=== PATIENT | female | born 1960 | race Caucasian/White ===

== ENCOUNTER 2019-05-25 05:32 | Inpatient (IN) ==
--- NOTE | 2019-05-25 05:55 | PROVIDER DOCUMENTATION ---
HPI-Neurological Disorder - General Chief Complaint: Stroke-Like Symptoms Stated Complaint: POSS STROKE SYMPTOMS Time Seen by Provider: 05/25/19 05:43 Source: patient Allergies/Adverse Reactions: Patient Allergies Allergy/AdvReac Type Severity Reaction Status Date / Time Penicillins Allergy Severe ANAPHYLAXIS Verified 06/01/16 13:54 albumin human * [From Rebif] Allergy HIVES Verified 06/01/16 13:54 butorphanol tartrate * Allergy HIVES Verified 06/01/16 13:54 [From Stadol] fentanyl Allergy DIZZINESS Verified 06/01/16 13:54 glatiramer acetate * Allergy HIVES Verified 06/01/16 13:54 [From Copaxone] interferon beta-1a Allergy HIVES Verified 06/01/16 13:54 [From Rebif] lamotrigine [From Lamictal] Allergy HIVES Verified 06/01/16 13:54 moxifloxacin HCl * Allergy HIVES Verified 06/01/16 13:54 [From Avelox] nitroglycerin Allergy NAUSEA/VOMI Verified 06/01/16 13:54 TING omeprazole [From Zegerid] Allergy HIVES Verified 06/01/16 13:54 oxycodone HCl * Allergy HIVES Verified 06/01/16 13:54 [From Roxicodone] prasterone (DHEA) Allergy HIVES Verified 06/01/16 13:54 pregabalin [From Lyrica] Allergy HIVES Verified 06/01/16 13:54 prochlorperazine edisylate * Allergy HIVES Verified 06/01/16 13:54 [From Compazine] prochlorperazine maleate * Allergy HIVES Verified 06/01/16 13:54 [From Compazine] sodium bicarbonate Allergy HIVES Verified 06/01/16 13:54 [From Zegerid] Sulfa (Sulfonamide Allergy RASH Verified 06/01/16 13:54 Antibiotics) Home Medications: Home Medication List Medication Instructions Recorded Confirmed Last Taken Type Gabapentin 600 mg PO BID 01/12/14 05/25/19 03/17/14 History Insulin Detemir [Levemir Flexpen] 50 unit SQ DIRECTED 01/12/14 05/25/19 03/17/14 History Lacosamide [Vimpat] 200 mg PO HS 01/12/14 05/25/19 03/17/14 History Omeprazole 40 mg PO DAILY 01/12/14 05/25/19 03/17/14 History Ondansetron HCl [Zofran] 4 mg PO Q8H PRN PRN 01/12/14 05/25/19 Unknown History Tizanidine [Zanaflex] 4 mg PO TID 01/12/14 05/25/19 03/17/14 History Levothyroxine Sodium 125 mcg PO DAILY 02/19/14 05/25/19 03/17/14 History Metoprolol Succinate 100 mg PO QHS 02/19/14 05/25/19 03/17/14 History Hydromorphone HCl [Dilaudid] 4 mg PO Q8-12H PRN PRN 03/18/14 05/25/19 03/18/14 16:25 History 4mg Promethazine [Phenergan] 50 mg PO Q6H PRN PRN 03/18/14 05/25/19 Unknown History Cyclobenzaprine [Flexeril] 10 mg PO TID #20 tablet 06/01/16 05/25/19 Unknown Rx Aripiprazole 5 mg PO DAILY 05/25/19 05/25/19 Unknown History Aspirin [Adult Aspirin] 81 mg PO DAILY 05/25/19 05/25/19 Unknown History Baclofen 10 mg PO Q8H PRN PRN 05/25/19 05/25/19 Unknown History Clopidogrel Bisulfate [Plavix] 75 mg PO DAILY 05/25/19 05/25/19 Unknown History Dantrolene Sodium 25 mg PO TID 05/25/19 05/25/19 Unknown History Diclofenac Potassium [Cambia] 50 mg PO DIRECTED 05/25/19 05/25/19 Unknown History Dulaglutide [Trulicity] 0.5 ml SQ DIRECTED 05/25/19 05/25/19 Unknown History Insulin Aspart [Novolog Flexpen] See Protocol SQ DIRECTED 05/25/19 05/25/19 Unknown History Pravastatin Sodium 20 mg PO DAILY 05/25/19 05/25/19 Unknown History Quetiapine [Seroquel] 200 mg PO QHS 05/25/19 05/25/19 Unknown History Venlafaxine E.r. [Effexor Xr] 75 mg PO DAILY 05/25/19 05/25/19 Unknown History - History of Present Illness-Neuro Nature of Presenting Problem: patient is a 58 year old white female with history of diabetes, TIAs ,multiple sclerosis,and CVA last Saturday when she received TPA for left sided weakness,sent to [facility], who presents with worsening left sided weakness since 429. Patient arrives with GCS of 15 and NIH stroke score of 4. Onset/Duration: reports: abrupt, 1-3 hours ago Timing: reports: still present Cognitive Baseline: alert, oriented x3 Review of Systems - Adult - REVIEW OF SYSTEMS - ADULT Constitutional: denies: chills, fever Eyes: denies: blurred vision Ears, Nose, Mouth & Throat: reports: no symptoms reported Cardiovascular: denies: chest pain Respiratory: denies: shortness of breath Gastrointestinal: reports: no symptoms reported Genitourinary: reports: no symptoms reported Musculoskeletal: reports: see HPI Integumentary: reports: no symptoms reported Neurological: reports: see HPI Psychiatric: reports: anxiety Endocrine: reports: no symptoms reported Hematologic/Lymphatic: reports: no symptoms reported Allergic/Immunologic: reports: no symptoms reported All Other Systems: Reviewed and Negative Past History - Adult - PAST MEDICAL HISTORY-ADULT Review of Records: reports: Old Records Reviewed, Nursing Assessment Review, Medications Reviewed, Social history reviewed & non-contributory. Major Childhood Illnesses: reports: denies history Cardiovascular: reports: cardiac disease Respiratory: reports: COPD Gastrointestinal: reports: denies history Obstetrical/Gynecological: reports: denies history Genitourinary: reports: denies history Musculoskeletal: reports: denies history Neurological: reports: CVA, headaches/migraines, Multiple Sclerosis Psychiatric: reports: psychiatric problems Endocrine/Immune: reports: Diabetes, thyroid disorder Other Conditions: reports: denies history - PRIOR SURGERIES/PROCEDURES Surgical/Procedure History: reports: appendectomy, cholecystectomy, hysterectomy , other - PRIOR HOSPITALIZATIONS Prior Hospitalizations: reports: none - IMMUNIZATION STATUS Childhood Immunizations: See Nurse Assessment Flu Vaccine: See Nurse Assessment - FAMILY HISTORY Family History: reviewed, not pertinent Physical Exam- Neurological - Physical Exam-Neuro General Appearance: alert, no apparent distress, obese, other (subtle left sided facial and extremity weakness) Eye Exam: bilateral eye: normal inspection, PERRL, EOMI HENMT: moist mucous membranes, normal ENT inspection Neck: non-tender, full range of motion, supple Respiratory: chest non-tender, lungs clear Cardiovascular: regular rate, rhythm Abdominal Exam: normal bowel sounds, non tender, soft Lymphatic: no adenopathy Peripheral Pulses: radial (R): 2+, radial (L): 2+ Extremity: non-tender, other (subtle left sided weakness) Motor/Sensory: no sensory deficit Neurologic: other (mild left sided weakness) Integumentary: normal turgor Psych/Mental Status: oriented x 3, anxious - Glascow Coma Scale Best Eye Response: (4) open spontaneously Best Verbal Response: (5) oriented Best Motor Response: (6) obeys commands Total Glascow Score: 15 Progress - PLAN OF CARE/RESULTS Progress/Plan/Lab Results: Vital Signs - 8 hr 05/25/19 05:35 05/25/19 07:26 05/25/19 07:36 Temperature 98.1 F Pulse Rate 87 86 79 Respiratory Rate 18 18 18 Blood Pressure 163/92 149/79 O2 Sat by Pulse Oximetry 97 96 95 05/25/19 09:44 Temperature Pulse Rate 74 Respiratory Rate 12 Blood Pressure 107/66 O2 Sat by Pulse Oximetry 97 Laboratory Results - last 24 hr 05/25/19 05/25/19 05/25/19 05:43 05:43 05:43 WBC 4.52 L RBC 5.29 Hgb 12.3 Hct 39.2 MCV 74.1 L MCH 23.3 L MCHC 31.4 L RDW Std Deviation 14.2 Plt Count 143 MPV 8.8 Immature Gran % (Auto) 0.4 Neut % (Auto) 51.4 Lymph % (Auto) 41.4 [place] % (Auto) 4.2 Eos % (Auto) 2.2 Baso % (Auto) 0.4 Immature Gran # (Auto) 0.02 Neut # (Auto) 2.32 Lymph # (Auto) 1.87 [place] # (Auto) 0.19 Eos # (Auto) 0.10 Baso # (Auto) 0.02 PT INR PTT (Actin FS) Sodium 141 Potassium 4.3 Chloride 104 Carbon Dioxide 28 Anion Gap 9 BUN 17 Creatinine 0.7 Estimated GFR/1.73 m2 > 60 BUN/Creatinine Ratio 24 Glucose 223 H POC Glucose Calculated Osmolality 290 Calcium 8.4 L Total Bilirubin 0.20 AST 29 ALT 32 Alkaline Phosphatase 131 H Troponin T < 0.010 Total Protein 6.1 L Albumin 4.2 Globulin 2.0 Albumin/Globulin Ratio 2.0 Urine Opiates Screen Ur Oxycodone Screen Urine Methadone Screen U Propoxyphene Qual Ur Barbituates Screen Ur Tricyclics Screen Ur Phencyclidine Scrn Ur Amphetamines Screen U Methamphetamines Scrn U Benzodiazepines Scrn Urine Cocaine Screen U Cannabinoids Screen 05/25/19 05/25/19 05/25/19 05:43 05:45 07:45 WBC RBC Hgb Hct MCV MCH MCHC RDW Std Deviation Plt Count MPV Immature Gran % (Auto) Neut % (Auto) Lymph % (Auto) [place] % (Auto) Eos % (Auto) Baso % (Auto) Immature Gran # (Auto) Neut # (Auto) Lymph # (Auto) [place] # (Auto) Eos # (Auto) Baso # (Auto) PT 13.4 INR 0.97 PTT (Actin FS) 29.7 Sodium Potassium Chloride Carbon Dioxide Anion Gap BUN Creatinine Estimated GFR/1.73 m2 BUN/Creatinine Ratio Glucose POC Glucose 184 H D Calculated Osmolality Calcium Total Bilirubin AST ALT Alkaline Phosphatase Troponin T Total Protein Albumin Globulin Albumin/Globulin Ratio Urine Opiates Screen PRESUMPTIVE POSITIVE A Ur Oxycodone Screen NONE DETECTED Urine Methadone Screen NONE DETECTED U Propoxyphene Qual NONE DETECTED Ur Barbituates Screen NONE DETECTED Ur Tricyclics Screen PRESUMPTIVE POSITIVE A Ur Phencyclidine Scrn NONE DETECTED Ur Amphetamines Screen NONE DETECTED U Methamphetamines Scrn NONE DETECTED U Benzodiazepines Scrn NONE DETECTED Urine Cocaine Screen NONE DETECTED U Cannabinoids Screen NONE DETECTED Orders Category Date Time Status Cardiac Monitoring DIRECTED Care 05/25/19 05:43 Active Finger Stick Blood Sugar (ED) DIRECTED Care 05/25/19 05:43 Active Misc. NRSG Communication Order DIRECTED Care 05/25/19 06:07 Active Oxygen Therapy- ED Nursing DIRECTED Care 05/25/19 05:43 Active Resuscitation Status Routine Care 05/25/19 10:26 Ordered Saline Loc NOW Care 05/25/19 05:43 Active CHEST-PORTABLE [RAD] Stat Exams 05/25/19 05:[address] HEAD W/O CONTRAST [CT] Stat Exams 05/25/19 05:39 Completed CBC WITH ELECTRONIC DIFF [HEME] Stat Lab 05/25/19 05:43 Completed COMPREHENSIVE METABOLIC PANEL [CHEM] Stat Lab 05/25/19 05:43 Completed PROTIME WITH INR [COAG] Stat Lab 05/25/19 05:43 Completed PTT [COAG] Stat Lab 05/25/19 05:43 Completed TROPONIN T Stat Lab 05/25/19 05:43 [address] DRUG SCREEN [address] Stat Lab 05/25/19 07:45 Completed EKG [EKG] Stat Ther 05/25/19 05:43 Draft Transfer/Admit Order [TRANSFER] Routine Transfer 05/25/19 10:25 Ordered Result Diagrams: 05/25/19 05:43 05/25/19 05:43 - REASSESSMENT Reassessment #1 Time Reassessed: 07:34 Status: unchanged (chart and CT head reviewed, pt examined , she is no better, still mild weak left lower face, mild speech , mild weak left arm dn leg. not a tPA candidate.) Reassessment #2 Time Reassessed: 10:22 Status: unchanged (A FEW WHONE CALL AND DISCUSSION TO WTHER PT BEST ADMITTED [facility] OR [facility]. JUST TALKED TO DR HA TWICE: PT TO BE ADMITTED TO [facility] NO BEDS AT [facility]. I ALSO TALKED TO DR GAMBOA (WHO IS NOT SCAN COORDINATOR) WHO SAYS [place] PT IN CONSULTATION IF SHE IS STILL ADMITTED HERE TOMORROW.) Reassessment #3 Time Reassessed: 10:35 Status: unchanged (PT AWAKENED FROM A DEEP SLEEP. DENIES PAIN (HAS NOT RECIEVED ANALGESICS HERE). CONCURS WITH FULL CODE STATUS. ORDERING MRI PT MORE SLEEPY THAN EARLIER. NO CHANGE IN PARTIAL WEAKNESS LEFT EXTREMITIES.) - EKG 1 Time of EKG reading by physician:: 05:38 EKG Read and Signed by:: Demarco Bedoya Rate: 86 Rhythm: NSR [place]: normal QRS: LVH [place] Interval: normal ST Wave: non-specific ST changes - CONSULTS/PCP/HOSPITALIST Notification #1 *Consult/PCP/Hospitalist*: DR NAZARIO,neurology at [facility] Time Discussed: 07:35 Consult Disposition: other (Pt not a canditate for tPA today as possible ischemic stroke just 1 wk ago. [facility] neuro full, try for transfer to [facility].) #2 Consult: DR CINTRON, [facility] NEUROLOGY Time Discussed: 08:15 Consult Disposition: other (DR CINTRON PULLED UP CAHRT AND MRI FROM 4 DAYS AGO AT [facility]: NO STROKE FOUND ON MRI, LWFT BODY WEAKNESS DEEMED 'NON--0RGANIC'. DR CINTRON DOES NOT ACDEPT PT TO [facility] NO FURTHER W/O RO MRI WOULD BE OFFERED. SAYS PT NEEDS RE-ASSURANCE AND REHAB WHICH CAN BE DONE HERE.) #3 Consult: DR CONTRERAS Time Discussed: 08:32 Consult Disposition: Admit (MAY NEED ADMISSON TO [facility] FOR NEUROLOGY SERVEICES, ACCEPTS ADMISSION.) - CHANGE OF SHIFT REPORT (ED Provider) 1 Report Given and Care Transferred to:: signed off to Dr. Edgar Ospina Time of Transfer: 07:00 Items Pending: Physician Consult/Arrival (awaiting teleneuro) Departure - Departure Date of Disposition Decision: 05/25/19 Time of Disposition Decision: 08:33 DIAGNOSIS: Left-sided weakness, Multiple sclerosis, Headache Disposition: ADMITTED INPATIENT 09 Certified Medical Emergency: Emergent Condition: Stable Referrals and Follow-Ups: Ángel Hylton [Primary Care Provider] - Discharge Education: Migraine Headache, [id number] - Critical Care Note This patient required my direct & personal management of CC.: Yes Total Time (mins): 45 (MULTIPLE PHONE CALLS TO SPECIALIST) Critical Care Statement: This patient required my direct personal management to treat or rule out processes, the absence of which, could potentiallly result in sudden, clinically significant life or limb threatening deterioration. Attestation - Physician/ AMANDA Attestation Patient care was provided by Advanced Practice Provider:: No The physician spent face to face time with patient:: Yes Advanced Practice Provider documentation review:: Supervising physician onsite and consulted in the evaluation and care of this patient. The physician did have a face to face encounter with the patient. - NIH Stroke Scale Level of Consciousness: 0-Alert LOC Questions (ask month and age): 0-Answers Both Correctly LOC Commands (ask to open & close eyes;make a fist, let go): 0-Obeys Both Correctly Best Gaze (horizontal eye movement): 0-Normal Visual (use finger movement, counting or visual threat): 0-No Visual Loss Facial Palsy (show teeth or raise eyebrows & close eyes tght: 1-Minor Paralysis Motor Function-left arm: 1-Drift Motor Function-right arm: 0-Normal Motor Function-left le-Drift Limb Ataxia(smygrc-rbja-knrnno, or heel to whelan): 1-Present in one limb Sensory(pin prick to face,arms,trunk,legs-compare side/side): 0-No Ataxia Best Language(name item/read sentence.Ex-Down to Earth): 0-No Aphasia Dysarthria(Pt read words or say words Ex.Mama,Tip-Top,Thanks: 0-Normal Articulation NIH Total Score: 4 Modified Carney Score Criteria: 2-slight disability Stroke tPA Guidelines - Consultation Reason not a candidate:: GIVEN TPA FOR POSSIBLE STROKE JUST 6 DAYS AGO.
[2019-05-25 06:01] LABS: BASO# 0.02 X1000 (0.0-0.2); BASO% 0.4 % (0.0-0.8); EOS% 2.2 % (0.0-10.0); HEMATOCRIT 39.2 % (37.0-47.0); HEMOGLOBIN 12.3 g/dL (12.0-16.0); IMM GRAN# 0.02 X1000 (0.0-0.04); IMM GRAN% 0.4 % (0.0-0.5); LYMPH# 1.87 X1000 (1.2-3.4); LYMPH% 41.4 % (20.5-51.1); MCH 23.3 PG (27-31); MCHC 31.4 g/dL (33-37); MCV 74.1 FL (81-99); MONO# 0.19 X1000 (0.11-0.59); MONO% 4.2 % (1.7-9.3); MPV 8.8 FL (7.4-10.4); NEUT# 2.32 X1000 (1.4-6.5); NEUT% 51.4 % (42.2-75.2); PLT 143 X1000 (130-400); RBC 5.29 XMIL (4.2-5.4); RDW 14.2 % (11.5-14.5); WBC 4.52 X1000 (4.8-10.8)
[2019-05-25 06:22] LABS: INR 0.97; PROTIME 13.4 Seconds (11.0-16.0)
[2019-05-25 06:24] LABS: PTT 29.7 Seconds (22.3-41.8)
[2019-05-25 06:37] LABS: AGAP 9; BUN 17 mg/dL (8-22); CHLORIDE 104 mmol/L (98-107); GLUCOSE 223 mg/dL (70-104); POTASSIUM 4.3 mmol/L (3.5-5.1); SODIUM 141 mmol/L (136-145); TCO2 28 mmol/L (25-35)
[2019-05-25 06:38] LABS: ALBUMIN 4.2 g/dL (3.5-5.0); ALKALINE PHOSPHATASE 131 U/L (32-104); CALCIUM 8.4 mg/dL (8.8-10.2); COSMO 290; CREATININE 0.7 mg/dL (0.5-0.9); ESTIMATED GFR > 60; GOT 29 U/L (10-30); GPT 32 U/L (10-36); TOTAL PROTEIN 6.1 g/dL (6.3-8.3)
--- NOTE | 2019-05-25 07:47 | Diag Imaging Result Doc PS360 ---
EXAM: CHEST-PORTABLE INDICATION: cva TECHNIQUE: One view COMPARISON: 05/19/2019 FINDINGS: The left chest port is in stable position. There is better inspiration as compared to the previous study. There has been improvement of the atelectasis at the lung bases. No new consolidation is identified. The cardiac silhouette is stable. IMPRESSION: Interval improvement of atelectasis and better inspiration. Electronically signed by Santos Quiros 05/25/2019 7:45 AM
[2019-05-25 08:30] LABS: UR AMPHETAMINES QUAL NONE DETECTED (NONE DETECT); UR BARBITUATES QUAL NONE DETECTED (NONE DETECT); UR BENZODIAZEPIN QUAL NONE DETECTED (NONE DETECT); UR CANNABINOIDS QUAL NONE DETECTED (NONE DETECT); UR COCAINE QUAL NONE DETECTED (NONE DETECT); UR METHADONE QUAL NONE DETECTED (NONE DETECT); UR METHAMPHETAMINE QUAL NONE DETECTED (NONE DETECT); UR OPIATES QUAL PRESUMPTIVE POSITIVE (NONE DETECT); UR OXYCODONE QUAL NONE DETECTED (NONE DETECT); UR PCP QUAL NONE DETECTED (NONE DETECT); UR PROPOXYPHENE QUAL NONE DETECTED (NONE DETECT); UR TCA QUAL PRESUMPTIVE POSITIVE (NONE DETECT)
--- NOTE | 2019-05-25 08:40 | EKG Report ---
Test Performed on : 05/25/2019 05:37:30 AM Test Reason : cva Blood Pressure : / mmHG Vent. Rate : 086 BPM Atrial Rate : 086 BPM P-R Int : 166 ms QRS Dur : 090 ms QT Int : 372 ms P-R-T Axes : 021 -12 030 degrees QTc Int : 445 ms Normal sinus rhythm. Moderate voltage criteria for LVH, may be normal variant Borderline ECG When compared with ECG of 19-MAY-2019 13:59, (Unconfirmed) No significant change was found Unconfirmed Result
--- NOTE | 2019-05-25 10:33 | Diag Imaging Result Doc PS360 ---
EXAM: CT HEAD W/O CONTRAST INDICATION: poss stroke TECHNIQUE: This exam was performed using automated exposure control, adjustment of mA or kV according to patient size, and/or use of iterative reconstruction technique. COMPARISON: 05/19/2019 FINDINGS: There is no definite acute infarct given the limited sensitivity of CT versus MRI. There is no discrete intracranial mass, mass effect, or intracranial hemorrhage. The surrounding soft tissues and bony structures are essentially unremarkable. IMPRESSION: No evidence of acute intracranial pathology. Electronically signed by Santos Quiros 05/25/2019 10:31 AM
[2019-05-25] MEDS ORDERED: TORADOL IV PRN (11:28)
[2019-05-25] MEDS ORDERED: NS 1,000 ML IV ONE (11:28)
[2019-05-25] MEDS: ASPIRIN PO SCH (17:13)
[2019-05-25] MEDS: TYLENOL PO PRN ×2 (17:13→23:22)
--- NOTE | 2019-05-25 18:33 | Diag Imaging Result Doc PS360 ---
EXAM: CT ANGIOGRAM HEAD/NECK INDICATION: stroke TECHNIQUE: This exam was performed using automated exposure control, adjustment of mA or kV according to patient size, and/or use of iterative reconstruction technique. Thin section axial images and 3-D MIPS were obtained. COMPARISON: No prior CTA head is available for comparison. FINDINGS: HEAD: The left vertebral artery is mildly dominant. The right vertebral artery terminates in PICA, a normal variant. The left PICA is not well visualized. The basilar artery is unremarkable. There is trace atherosclerotic calcification at the carotid siphons. There is no evidence of significant ICA stenosis. The arteries comprising the [place] of [place] including the anterior, middle, and posterior cerebral arteries exhibit no flow-limiting stenosis, vascular malformation, or aneurysm. NECK: There is only trace atherosclerotic calcification at the proximal ICA on the right. There is no evidence of flow-limiting stenosis, vascular malformation, aneurysm, or dissection involving the right or the left cervical carotid systems or the right and left vertebral arteries. IMPRESSION: 1.Right vertebral artery terminates in PICA, a normal variant. The left PICA, cannot be identified. However, absence of one of the PICAs is also a fairly common variant. 2.Otherwise, no evidence of flow-limiting stenosis involving the arteries of the head or the neck. Electronically signed by Santos Quiros 05/25/2019 6:31 PM
--- NOTE | 2019-05-25 18:41 | HISTORY AND PHYSICAL ---
CHIEF COMPLAINT: Stroke-like symptoms. HISTORY OF PRESENT ILLNESS: This is a 58-year-old female with multiple medical conditions including TIA, multiple sclerosis, previous CVA, and hypertension who presented to the emergency department last night complaining of blurry vision, slurred speech, and left-sided weakness. She reported that last Saturday she was okay in the morning, but by the afternoon she noticed. Some weakness of the left leg as well as blurred vision, dizziness and slurred speech. So a relative called the ambulance. She was about to be sent to another hospital, but en route she was found to have a blood pressure 220/104. So EMS decided to bring her to the closest hospital and in this case was [facility] Here, she was evaluated, and apparently they called [facility]. They were okay to start tPA on her, and she was sent over there. She was evaluated by neurologist, and apparently the MRI of the brain did not show any stroke. So she was dismissed the next today. This case was . Yesterday afternoon, she started noticing basically the same symptoms, so that is why she decided to come to the emergency department here in [place]. Upon my examination now, she reported that all her symptoms are gone except mild weakness in the left lower extremity. Dr. Edgar Ospina evaluated this patient, and he called B this morning. The neurologist said that they are not going to take this patient, because she did not have any stroke and they would not repeat an MRI considering that she had one recently a few days ago. Also, they tried to send this patient to [place], but they refused to take care. [facility] has been called, but they recommend for this patient to stay over here. The patient does not need to have any tPA or any other urgent measures. She is going to be admitted to the hospital over here. We will consult neurology, and we will go from there. PAST MEDICAL HISTORY: 1. Multiple sclerosis. She sees Dr. Brannon in [place]. 2. COPD as a secondary smoker. She never smoked. 3. History of TIA. Because of 2 TIAs, she was evaluated at [facility]. She was found to have a PFO that was closed in November 2018 at [facility]. 4. Hypertension. 5. Hypothyroidism. 6. Neuropathy. 7. Diabetes mellitus type 2. 8. Dysautonomia. 9. Migraines. PAST SURGICAL HISTORY: 1. Hysterectomy. 2. Bladder surgery. 3. Appendectomy. 4. Cholecystectomy. 5. Knee surgery. ALLERGIES: Penicillin, albumin human, butorphanol, and fentanyl. SOCIAL HISTORY: She Is a never smoker. Does not drink any alcohol or using illicit drugs. FAMILY HISTORY: Father of heart disease. She does not remember exactly what it was. REVIEW OF SYSTEMS: Eleven systems were reviewed and all symptoms are related to H and P. PHYSICAL EXAMINATION: VITAL SIGNS: Temperature 98.1 degrees, heart rate 71, respiratory rate 18, blood pressure 138/64, O2 saturations 100% on room air. GENERAL: This is a 58-year-old female lying in bed in no acute distress. HEENT: Head is normocephalic, atraumatic. Mucous membranes dry. Pupils equal, round, and reactive to light and accommodation. NECK: No JVD noted. No carotid bruits. No lymphadenopathy. No thyromegaly. CARDIOVASCULAR: S1, S2 heard. No murmurs, gallops, or rubs. Regular rate and rhythm. RESPIRATORY: Clear bilaterally to auscultation. No work of breathing or using accessory muscles. ABDOMEN: Soft, nontender to palpation. Bowel sounds present. No organomegaly. EXTREMITIES: No clubbing, cyanosis, or edema. Peripheral pulses present in both legs. NEUROLOGIC: Cranial 1st to 12 grossly normal. There is a left lower extremity 3/5 motor strength. On both upper extremities there is 4/5 motor strength. Gait not evaluated. LABORATORY DATA: CBC and BMP are okay. Blood sugar is 223. UDS positive for tricyclics and opiates. ASSESSMENT AND PLAN: 1. Suspected stroke versus multiple sclerosis flare-up. At this point, I am thinking more than a possible MS flare-up. In that regard we are going to start this patient on Solu-Medrol 60 mg IV q. 8 hours. We will also use omeprazole. Of course, I would like to repeat an MRI of the brain and also CTA of the head and neck to rule out any new stroke. We will repeat the echocardiogram to see if the PFO is completely closed. 2. Hypertension. Blood pressure has been, as we mentioned before, high at admission, but now after we resumed her medications it is 138/64, last reading. We will continue to monitor. 3. Diabetes mellitus type 2. We are going to check hemoglobin A1c. We are going to start this patient on Humalog high doses, because with the Solu-Medrol her blood sugar will be really high. She has been started on Trulicity, and we will continue to monitor. 4. Hypothyroidism. We will continue with home doses of levothyroxine. cc: George Her MD
[2019-05-25] MEDS: SOLU-MEDROL IV SCH (18:45)
[2019-05-25] MEDS: ULTRAM PO PRN (18:46)
[2019-05-25] MEDS ORDERED: PNEUMOVAX 23 IM ONE (19:15)
[2019-05-25] MEDS: LEVEMIR INSULIN *HA SUBQ SCH (21:20)
[2019-05-25] MEDS: ZOFRAN IV PRN (21:20)
[2019-05-25] MEDS: HUMALOG (PARKWAY) SUBQ SCH (21:24)
[2019-05-26] MEDS: SOLU-MEDROL IV SCH ×3 (02:31→17:06)
[2019-05-26] MEDS: ULTRAM PO PRN ×4 (03:03→23:15)
[2019-05-26 07:19] LABS: AGAP 11; BUN 16 mg/dL (8-22); CALCIUM 8.5 mg/dL (8.8-10.2); CHLORIDE 98 mmol/L (98-107); CHOLESTEROL 151 mg/dL (0-200); COSMO 282; CREATININE 0.6 mg/dL (0.5-0.9); ESTIMATED GFR > 60; GLUCOSE 331 mg/dL (70-104); HDL 52 mg/dL (45-65); LDL 82 mg/dL; POTASSIUM 4.3 mmol/L (3.5-5.1); SODIUM 134 mmol/L (136-145); TCO2 25 mmol/L (25-35); TRIGLYCERIDES 85 mg/dL (35-135); VLDL 17 mg/dL
[2019-05-26 07:23] LABS: HEMATOCRIT 38.4 % (37.0-47.0); HEMOGLOBIN 11.9 g/dL (12.0-16.0); IMM GRAN# 0.02 X1000 (0.0-0.04); IMM GRAN% 0.4 % (0.0-0.5); LYMPH# 0.57 X1000 (1.2-3.4); LYMPH% 10.9 % (20.5-51.1); MCH 22.4 PG (27-31); MCV 72.3 FL (81-99); MONO# 0.05 X1000 (0.11-0.59); MPV 9.6 FL (7.4-10.4); NEUT# 4.57 X1000 (1.4-6.5); NEUT% 87.7 % (42.2-75.2); PLT 144 X1000 (130-400); RBC 5.31 XMIL (4.2-5.4); RDW 13.8 % (11.5-14.5); WBC 5.21 X1000 (4.8-10.8)
[2019-05-26] MEDS: ZOFRAN IV PRN ×3 (07:43→20:51)
[2019-05-26] MEDS: PRILOSEC PO SCH (07:43)
[2019-05-26] MEDS: HUMALOG (PARKWAY) SUBQ SCH ×4 (07:43→22:18)
[2019-05-26] MEDS: ASPIRIN PO SCH (09:22)
[2019-05-26] MEDS: PLAVIX PO SCH (09:22)
[2019-05-26] MEDS: LEVEMIR INSULIN *HA SUBQ SCH ×2 (09:55→20:50)
[2019-05-26 10:13] LABS: ANISOCYTOSIS 1+; LYMPHS 18 % (21-51); MICROCYTOSIS 1+; MONO 1 % (1-9); SEGS 81 % (42-75)
--- NOTE | 2019-05-26 13:44 | Diag Imaging Result Doc PS360 ---
EXAM: MRI BRAIN W/WO CONTRAST - 05/26/2019 HISTORY: WEAKNESS LEFT ARM AND LEG, LETHARGIC TECHNIQUE: MRI brain without and with contrast. Images are obtained prior to and following gadolinium administration. COMPARISON: 09/08/2018 FINDINGS: There are scattered white matter signal abnormalities similar to the prior exam. These do not have the typical. Ventricular distribution of demyelinating disease and are suggestive of mild chronic microvascular ischemic changes. The diffusion weighted images show no areas of restricted effusion (no evidence of acute infarct). There is no evidence of intracranial hemorrhage, mass effect, midline shift, or hydrocephalus. There is no abnormal enhancement identified. IMPRESSION: Mild chronic microvascular ischemic changes. No visible acute intracranial abnormality. No evidence of acute infarct. Electronically signed by Conrad Garcia 05/26/2019 1:42 PM
[2019-05-26] MEDS: TYLENOL PO PRN (14:25)
--- NOTE | 2019-05-26 16:07 | CONSULTATION ---
DATE OF CONSULTATION: 05/26/2019 HISTORY OF PRESENT ILLNESS: Ms. Goodman reports 4 episodes of left-sided weakness. Two episodes occurred in August 12 days apart, lasting 4 to 5 hours per spell. She did well for several months, and then had a spell last week and another episode yesterday. Yesterday, she was getting out of the shower and felt dizzy. She noticed weakness in the left limbs. She reports onlooker noticed facial asymmetry. She believes slurred speech was reported. There was no vision disturbance. There was no altered consciousness, altered awareness, memory gap. Symptoms resolved spontaneously after a few hours. She has a long history of headache. Headaches are mostly global, sometimes pounding and throbbing, sometimes pressure, sometimes associated with nausea. She takes hydromorphone regularly. She is missing her hydromorphone here and asked me specifically for that. Workup includes brain MRI showing nothing remarkable. There are some old ischemic changes, but nothing focal or acute and no bleeding. Blood sugars have ranged 200s to 300s. I do not see anything else remarkable in the lab work. She has been afebrile. Systolic blood pressures were initially 160s, later 100s-140s. By report, she had systolic blood pressure 200 or 220 when she presented last week. There is report that she was managed with tPA last week. There is report that she has previously diagnosed multiple sclerosis. On exam, Ms. Goodman is awake, alert, attentive. She seems appropriate. Speech is not dysarthric. Language function is intact. Memory seems good. Head and neck are unremarkable. Visual rubio are full tested grossly by confrontational finger counting. Extraocular movements are full. Facial motility is symmetric. Gag is intact. Tongue is midline. She can hear. Shoulder shrug is equal. Strength seems normal in the arms and legs, somewhat difficult to circuit court judge with certainty with her fluctuating effort testing the left limbs, particularly the left arm. With distraction and repeated testing, she shows normal power in the left limbs. Limb tone is symmetric. She did rapid alternating movements well with the hands. There is added difficulty using left arm, associated with left antecubital IV site. She reports symmetric sensation on gross testing over the limbs. Proprioception is normal at the great toe MTP joint bilaterally. I did not test her gait. She did well on [id number] testing bilaterally. IMPRESSION: No definite neurologic finding. Reported episodes associated with headache makes migraine a possibility, but I do not strongly suspect that. She has lot of headache and analgesic rebound/medication overuse, or analgesic withdrawal may be partly responsible. She appears to have sustained blood pressure elevations, and that may also account for some of her headache. The history of episodes provided to me does not suggest multiple sclerosis as the etiology. I do not see evidence of multiple sclerosis exacerbation now. I do not have any specific suggestion from Neurology standpoint. I encouraged her to take her medicines as directed, particularly to be careful with her narcotics. I told her to keep followup with her other doctors. Thanks for asking Neurology to see Ms. Goodman. cc: MD Chandler Parra III, MD MTDD
[2019-05-26] MEDS ORDERED: FLONASE NAS ONE (17:37)
[2019-05-26] MEDS: DILAUDID PO PRN (20:51)
--- NOTE | 2019-05-26 23:39 | PROGRESS NOTE ---
DATE: 05/26/2019 SUBJECTIVE: Patient notes that she is feeling a lot better, although still does not feel quite back to normal. Denies any fevers or chills. PHYSICAL EXAMINATION: Vital Signs: Reviewed. Temperature 98 degrees, pulse 75, respiratory rate 18, BP 134/83. General: Patient is awake. She is in no current respiratory distress. HEENT: Normocephalic. Neck: Supple. Cardiovascular: Regular rate. Chest: Clear. Abdomen: Soft. Extremities: Moves all extremities. ASSESSMENT: 1. Stroke-like symptoms appear to have resolved, although she does have a previous history of cerebrovascular accident. 2. Multiple sclerosis. 3. Hypertension. 4. Dysautonomia. 5. Diabetes. PLAN: We will continue to follow patient in the hospital today. If she improves, hopefully, she can discharge home tomorrow. We will attempt to get her out of bed. Further orders as needed. cc: Chandler Palacio MD
[2019-05-26] MEDS ORDERED: SEROQUEL PO SCH (23:45)
[2019-05-27] MEDS: SOLU-MEDROL IV SCH ×2 (02:27→09:03)
[2019-05-27] MEDS: HUMALOG (PARKWAY) SUBQ SCH (06:19)
[2019-05-27] MEDS: PRILOSEC PO SCH (06:19)
[2019-05-27] MEDS: DILAUDID PO PRN (06:38)
[2019-05-27 06:52] LABS: HEMOGLOBIN 11.6 g/dL (12.0-16.0); IMM GRAN# 0.02 X1000 (0.0-0.04); IMM GRAN% 0.2 % (0.0-0.5); LYMPH# 0.99 X1000 (1.2-3.4); LYMPH% 12.3 % (20.5-51.1); MCH 22.4 PG (27-31); MCHC 31.4 g/dL (33-37); MCV 71.6 FL (81-99); MONO# 0.19 X1000 (0.11-0.59); MONO% 2.4 % (1.7-9.3); MPV 9.5 FL (7.4-10.4); NEUT# 6.86 X1000 (1.4-6.5); NEUT% 85.1 % (42.2-75.2); PLT 172 X1000 (130-400); RBC 5.17 XMIL (4.2-5.4); WBC 8.06 X1000 (4.8-10.8)
[2019-05-27 06:58] LABS: AGAP 11; BUN 16 mg/dL (8-22); CALCIUM 8.8 mg/dL (8.8-10.2); CHLORIDE 105 mmol/L (98-107); COSMO 287; CREATININE 0.7 mg/dL (0.5-0.9); ESTIMATED GFR > 60; GLUCOSE 215 mg/dL (70-104); POTASSIUM 4.1 mmol/L (3.5-5.1); SODIUM 140 mmol/L (136-145); TCO2 25 mmol/L (25-35)
[2019-05-27 07:29] VITALS: BP 124/95
[2019-05-27] MEDS: ZOFRAN IV PRN (07:48)
[2019-05-27] MEDS ORDERED: FLONASE NAS SCH (09:00)
[2019-05-27] MEDS: ASPIRIN PO SCH (09:04)
[2019-05-27] MEDS: LEVEMIR INSULIN *HA SUBQ SCH (09:04)
[2019-05-27] MEDS: PLAVIX PO SCH (09:04)
--- NOTE | 2019-05-28 06:02 | DISCHARGE SUMMARY ---
ADMISSION DATE: 05/26/2019 DISCHARGE DATE: 05/27/2019 CONSULTATIONS: Dr. Green with Neurology. PERTINENT PROCEDURES: 1. Head CT with no evidence of acute intracranial pathology. 2. Head and neck CT right vertebral artery terminates in PICA and normal variant. The left PICA cannot be identified. No evidence of flow-limiting stenosis involving the arteries of the neck identified. 3. Brain MRI mild chronic microvascular ischemic changes. No visible acute intracranial abnormality. No evidence of acute infarction. DISCHARGE DIAGNOSES: 1. Stroke-like symptoms appear to have resolved. She does have a previous history of TIA with PFO closure at [facility], and has been evaluated by Dr. Green with Neurology. She has been encouraged to take her medications as directed, particularly to be careful with her narcotics. Follow up with her regular doctors. 2. Multiple sclerosis with no exacerbation. 3. Migraine headaches, which could be as a result of rebound medication and/or overuse or from hypertension now improved. 4. Hypertension. Continue medications. 5. Dysautonomia. 6. Diabetes mellitus. Continue home regimen and diabetic diet. 7. Hypothyroidism. Continue levothyroxine. HOSPITAL COURSE: Briefly, Ms. Goodman is a 58-year-old female with multiple medical issues including TIA that she was evaluated for at [facility]. She was found to have a PFO that was closed in November of 2018. Multiple sclerosis followed by Dr. Brannon in [place], previous CVA, and hypertension who presented to the ED complaining of blurry vision and slurred speech, and a left- sided weakness. She reported last Saturday she was okay in the morning, but in the afternoon she noticed weakness in the left leg and blurry vision, dizziness, and slurred speech. A relative called the ambulance. She was sent to another hospital, but en route she was found have a blood pressure of 220/104 so she was brought to the closest medical facility which was [facility]. The ED did speak with Neurology at [facility]. She was given the okay by them for tPA and was sent to [facility] where she was evaluated by a neurologist. They did an MRI of the brain that did not show any acute stroke there, and was discharged the next day. On Saturday afternoon, she started noticing the same symptoms again, and came to the ED again at [facility]. They spoke with [facility] again. They felt that all their findings were organic, and that she just needed reassurance and some rehab. They also tried [facility], however, after speaking with the on-call neurologist, they did not recommend any tPA or any other urgent measures as they did not have any rooms available so she was admitted to the [facility] for suspected stroke versus a multiple sclerosis flare up. She was initiated on Solu-Medrol, her home Plavix, and full-dose aspirin. Initial head CT as well as head neck CT did not show any acute findings. When she got an MRI on the , there were also no acute findings. She was evaluated by Dr. Green who did not find any definite neurological findings. He felt the episodes associated with headaches and possibly migraine, could deal with her analgesic medication secondary to rebound or overuse, or possibly withdrawal as well as some elevated blood pressures could account for some of her headaches. He did not feel that she had an exacerbation of her multiple sclerosis. She has been encouraged to take all her medicines as directed, and particularly be careful with her narcotics, and to follow up with her regular provider and neurologist. VITAL SIGNS: At time of discharge, temperature 98.4 degrees, heart rate 81, respirations 16, blood pressure 124/95, and O2 is 100% on room air. DISCHARGE DIET: Healthy heart. DISCHARGE MEDICATIONS: 1. Metoprolol 100 mg p.o. at bedtime. 2. Seroquel 200 mg p.o. at bedtime. 3. Aspirin 81 mg p.o. daily. 4. Baclofen 10 mg p.o. q.8 hours p.r.n. pain. 5. Aripiprazole 5 mg p.o. daily. 6. Cambia 50 mg p.o. as directed. 7. Dantrolene 25 mg p.o. t.i.d. 8. Dilaudid 4 mg p.o. q.12 hours p.r.n. pain. 9. Effexor XR 75 mg p.o. daily. 10. Gabapentin 600 mg p.o. b.i.d. 11. Levemir FlexPen 50 units subcutaneously as directed in morning and evening. 12. Levothyroxine 125 mg p.o. daily. 13. NovoLog FlexPen as per protocol. 14. Prilosec 40 mg p.o. daily. 15. Phenergan 50 mg p.o. q.6 hours p.r.n. nausea. 16. Plavix 75 mg p.o. daily. 17. Pravastatin 20 mg p.o. daily. 18. Trulicity 0.5 mL subcu as directed. 19. Vimpat 200 mg p.o. at bedtime. 20. Zanaflex 4 mg p.o. t.i.d. 21. Zofran 4 mg p.o. q.8 hours p.r.n. nausea. 22. Flexeril 10 mg p.o. t.i.d. 23. Medrol Dosepak 4 mg p.o. as directed x1 package. FOLLOWUP: Ms. Goodman is being discharged back home with self care. She is to follow up with her primary care provider, Ángel Hylton as well as her primary neurologist. She can return to the ED or call 911 for any worsening of symptoms. She is take all medications as prescribed. Dictated by LOLI Meneses for Chandler Palacio MD cc: MD Ángel Reyna MD
--- NOTE | 2019-05-28 22:20 | DISCHARGE SUMMARY ---
ADMISSION DATE: 05/26/2019 DISCHARGE DATE: 05/27/2019 HOSPITAL COURSE: Patient seen and examined by myself. Full note dictated and discussed with nurse practitioner. Patient presented to the hospital with stroke-like symptoms. Thankfully, this appears to have resolved. She was admitted as a full workup for stroke. Neurology saw her in consultation. Thankfully, on discharge, all of her symptoms appear to have resolved and she is feeling better. Did discuss with patient that she certainly needs to consider attempting to wean the pain medication as despite its name, it does not actually fix pain. Discussed with her different ways to wean. cc: Chandler Palacio MD
[2019-05-29] MEDS ORDERED: PATIENT'S OWN MED SUBQ SCH (10:00)
== END 2019-05-27 10:14 | disposition home health service (06) | DRG 556 ==
LOC: P.ED 05:32 → P.MEDSURG 10:43 → INTOOBSV 10:43 → SUATTDRO 10:43 → P.MEDSURG 10:58
PROVIDERS: ADMIT Family Medicine; ATTEND Family Medicine